=== PATIENT | female | born 1975 | race Two or more races ===

== ENCOUNTER 2024-09-26 23:05 | Observation (INO) | payer MEDICAID, SELFPAY ==
--- NOTE | 2024-09-26 23:17 | PC.NURSE ---
NOT A STROKE ALERT PER PA PATEL.
--- NOTE | 2024-09-26 23:23 | XR_ITS ---
Examination: CT brain head without contrast. 2-D sagittal coronal reconstructions Date and time of exam: September 26, 2024 at 11:58 PM INDICATIONS: Cerebrovascular effusion today CTDI: vol (mGy):47.2 DLP: (mGycm):896 Technique: Multiple CT axial sections of the brain have been obtained, 5 mm slice thickness. Contrast has not been administered. 2-D sagittal, coronal reconstructions have been obtained Low dose protocols were performed. One or more of the following dose reduction techniques were used; automated exposure control, adjustment of the mA and/or KV according to patient size, use of iterative reconstruction technique. Findings: No significant ventricular enlargement. Intra-axial or extra-axial hemorrhage density is not seen. No mass effect or midline shift Basal cisterns are not remarkable. Fourth ventricle is midline. Cranial vault intact. Impression: Negative for acute hemorrhage, mass effect or midline shift
--- NOTE | 2024-09-26 23:24 | PD.EDRME ---
Rapid Medical Screening Exam [facility] Arrival date/time: 09/26/24 23:05 48F with history of HTN and anemia presents to ED with several hours of L blurry vision and pain. Patient denies AMS, seizures, N/V, dizziness, slurred speech, and weakness. Chief Complaint: Eye Problems Time Seen by Provider: 09/26/24 23:25 Vital signs: Vital Signs Temperature 98.2 F 09/26/24 23:33 Pulse Rate 86 09/26/24 23:33 Respiratory Rate 20 09/26/24 23:33 Blood Pressure 159/79 H 09/26/24 23:33 Pulse Oximetry (%) 99 09/26/24 23:33 Oxygen Delivery Method Room Air 09/26/24 23:33
[2024-09-26 23:33] VITALS: BP 159/79; PULSE 86; RESP 20; TEMP 36.8; O2SAT 99
[2024-09-26 23:35] VITALS: BMI 29.9
--- NOTE | 2024-09-26 23:58 | PD.EDEYE ---
ED Eye Problem RME/HPI General Chief complaint: Eye Problems Stated complaint: MY EYE IS JUMPING A LOT, Time Seen by Provider: 09/26/24 23:25 Source: patient, RN notes reviewed and old records reviewed Arrival date/time: 09/26/24 23:05 Mode of arrival: ambulatory Limitations: no limitations RME / HPI RME / HPI Narrative: 09/26/24 23:05 48F with history of HTN and anemia presents to ED with several hours of L blurry vision and pain. Patient denies AMS, seizures, N/V, dizziness, slurred speech, and weakness. 48-year-old female with history of hypertension and compliant coming into the emergency department with left eye changes patient states she was looking at her phone and she felt like her eye was moving [id number] on the left side. She has hard time describing the type of vision change and or eye change however she denies headache, or trauma. The patient's not seeing a shadow come down or curtainlike feature in her eyesight. She has not had symptoms like this before. Patient states her symptoms are slightly improved since it started several hours ago. She thinks it was closer to 6 PM. No neck pain, chest pain, shortness of breath, difficulty walking, numbness, weakness, or change in her speech. No hearing loss. Denies eye pain or eye redness. No eye injury. No foreign body sensation Onset (ago): unknown Onset description: sudden Duration: intermittent Location: left eye Place: home Mechanism: none Severity: moderate Associated symptoms: none Treatments Prior to Arrival: none Related Data Home Medications ?Medication ?Instructions ?Recorded ?Confirmed lisinopril 20 mg tablet 20 mg PO DAILY 09/24/20 07/09/21 Allergies Allergy/AdvReac Type Severity Reaction Status Date / Time No Known Allergies Allergy Verified 09/26/24 23:12 Review of Systems Review of Systems Systems Reviewed: All systems reviewed, normal except as documented Past Medical History Past Medical History NEUROLOGIC: Negative Neurological Disorders or Seizures CARDIAC: Positive Cardiac Disorders and Hypertension; Negative Congestive Heart Failure RESPIRATORY: Negative Chronic Obstructive Pulmonary Disease (COPD) or Asthma GASTROINTESTINAL: Negative Gastrointestinal Disorders or Hepatitis GENITOURINARY: Negative Genitourinary Disorders or Renal Disease MUSCULOSKELETAL: Negative Musculoskeletal Disorders ENDOCRINE: Negative Endocrine Disorders, Diabetes Mellitus Type 1 or Diabetes Mellitus Type 2 HEMATOLOGIC: Negative Blood Disorders or Sickle Cell Disease OTHER HISTORY: Positive Chicken Pox; Negative Blood Transfusions, Blood Transfusion Reaction, Anesthesia Reactions, MRSA, VRSA, Vancomycin-Resistant Enterococci, Human Immunodeficiency Virus (HIV), Measles, Mumps, Rubella (Israeli Measles), Pertussis, Clostridium Difficile or Cancer Family History FAMILY HISTORY: Negative Family Cardiac Disorders Surgical History SURGICAL: Positive Section Social History SMOKING STATUS: Never smoker ED Exam Narrative Physical exam: Physical Exam GENERAL: NAD, AAOx3 HEENT: Moist mucosa. Eyes open, Lt eye dilated>> right eye, slit lamp broken, no sidel sign, cornea was not hazy, no temporal artery tenderness, flouroceein and wood lamp no foreign body with no dendrites CARDIO: Heart RRR, no obvious murmurs PULM: No noted coughing/dyspnea CTA B/L, no R/W/R GI: Abdomen soft, nondistended, no pain on palpation. BSx4 SKIN/MSK/EXT: No wounds/rashes/edema/amputations, no pain on palpation. Pedal pulses present B/L NEURO: AAOx3, no focal neuro deficits, able to move all 4 extremities General Limitations: Present no limitations Expanded Eye Exam Eyelids: bilateral: normal inspection and erythema (negative ) Pupils: Left: irregular (dilated compared to the Right ) and Bilateral: reactive Sclera/Conjunctival: bilateral: normal inspection (Lt eye dilated>>> right ), injection (negative), hemorrhage (negative), foreign body (negative), exudate (negative) and tenderness (negative) Anterior chamber: bilateral: normal inspection Posterior chamber: bilateral: deferred IOP (R) in mmH IOP (L) in mmH Course Course Course Narrative: 2358: Patient is still pending to be placed in a room. 2359: Patient is in CT then will be brought to a room. 0003: Patient is back from CT and is now placed in a room. 0035: Stroke alert called 0040: Went to CT, Teleneuro consulted 0045: Returned back from CT 0200 visual acuity test unable to be done as patient has visual deficits bilaterally, lleft pupil continues to be dilated and not constricting to light 0237 Teleneurology recommends 300mg plavix x1, and aspirin, and initiate DAPT aspirin 81mg and Plavix 75mg qday and recommends admission for further stroke work up. Quality Measures none Orders Category Date Time Status Admit to Inpatient Status Routine Admission 09/27/24 03:14 Active Patient Condition Routine Admission 09/27/24 03:13 Ordered Blood glucose [Bedside Blood Glucose] NOW Care 09/26/24 23:23 Active Political Researcher NOW Care 09/27/24 00:25 Active Continuous Pulse Oximetry NOW Care 09/27/24 00:25 Completed EKG (ED ONLY) *Do not use* NOW Care 09/27/24 00:25 Completed IV [Insert IV] STAT Care 09/26/24 23:53 Active In and Out Catheter NEEDED Care 09/27/24 00:25 Active Miscellaneous Nursing Order NOW Care 09/27/24 03:35 Active NIH Stroke Scale now Care 09/27/24 00:25 Active NPO NOW Care 09/27/24 00:25 Active Neuro Check Q4H Care 09/27/24 03:19 Active Notify provider NEEDED Care 09/27/24 03:13 Active Nurse Swallow Screen x1 Care 09/27/24 00:25 Active Visual Acuity X1 Care 09/26/24 23:53 Active Consult to Neurology / Tele-Neurology Routine Cons 09/27/24 00:25 Active Consult to Neurology / Tele-Neurology Stat Cons 09/27/24 03:41 Active Referral Physical Therapy Stat Cons 09/27/24 03:42 Active Referral Speech Therapy Stat Cons 09/27/24 03:42 Active Diet Cardiac Diet 09/27/[address] angio stroke protocol Stat Exams 09/27/24 00:[address] head/brain wo con Stat Exams 09/26/24 23:[address] stroke protocol Stat Exams 09/27/24 00:25 Ordered EKG (ED Only) Stat Exams 09/27/24 00:25 Draft CBC AM DRAW Lab 09/27/24 05:00 Ordered CBC AM DRAW Lab 09/28/24 05:00 Ordered CBC AM DRAW Lab 09/29/24 05:00 Ordered CBC Stat Lab 09/27/24 00:30 Completed Comprehensive Metabolic Panel AM DRAW Lab 09/27/24 05:00 Ordered Comprehensive Metabolic Panel AM DRAW Lab 09/28/24 05:00 Ordered Comprehensive Metabolic Panel AM DRAW Lab 09/29/24 05:00 Ordered Comprehensive Metabolic Panel Stat Lab 09/27/24 00:30 Completed Drug Screen,Urine Stat Lab 09/27/24 00:25 Ordered HCG Titer if Positive Stat Lab 09/27/24 00:30 Completed Lipid Panel AM DRAW Lab 09/27/24 05:00 Ordered Magnesium AM DRAW Lab 09/27/24 05:00 Ordered Magnesium Stat Lab 09/27/24 00:30 Completed Partial Thromboplastin Time Stat Lab 09/27/24 00:30 Completed Prothrombin Time with INR AM DRAW Lab 09/28/24 05:00 Ordered Prothrombin Time with INR Stat Lab 09/27/24 00:30 Completed Thyroid Stimulating Hormone AM DRAW Lab 09/27/24 05:00 Ordered Troponin I Stat Lab 09/27/24 00:30 Completed Urinalysis Stat Lab 09/27/24 00:25 Ordered Urine Culture Stat Lab 09/27/24 00:25 Ordered Acetaminophen Tab [Tylenol Tab] Med 09/27/24 03:19 Active 650 mg PO Q6H PRN Aspirin Med 09/27/24 02:56 Discontinued 325 mg PO X1 ONE Aspirin [Ecotrin] Med 09/27/24 15:00 Active 81 mg PO QDAY Clopidogrel [Plavix] Med 09/27/24 02:37 Discontinued 300 mg PO X1 ONE Clopidogrel [Plavix] Med 09/27/24 15:00 Active 75 mg PO QDAY Fluorescein Sodium [Bio-Roberta] Med 09/27/24 00:06 Discontinued 1 mg BOTH EYES X1 ONE Ondansetron Inj [Zofran Inj] Med 09/27/24 00:25 Active 4 mg IVP Q4HR PRN Ondansetron Inj [Zofran Inj] Med 09/27/24 03:19 Pending 4 mg IVP Q6H PRN Proparacaine Op Serene 0.5% [Alcaine Op Serene 0.5%] Med 09/26/24 23:53 Discontinued See Dose Instructions BOTH EYES X1 ONE Code Status Routine Oth 09/27/24 03:13 Ordered Oxygen Delivery NOW RT 09/27/24 00:25 Active Vital Signs Vital signs: Vital Signs Temperature 98.2 F 09/26/24 23:33 Pulse Rate 86 09/26/24 23:33 Respiratory Rate 20 09/26/24 23:33 Blood Pressure 159/79 H 09/26/24 23:33 Pulse Oximetry (%) 99 09/26/24 23:33 Oxygen Delivery Method Room Air 09/26/24 23:33 Eye MDM Narrative MDM Narrative:: 48 y/o F with PMHx of HTN and anemia who presented to the ED due to left sided vision loss and dilated pupil. last well known was around 7pm tonight 09/26/2024. States no similar symptoms in the past. Patient denies any headache, eye pain, palpitations, fever, chills. Stroke alert was called at 0033. Tele neurology consulted and CT head as well as CTA Head/Neck will be ordered. CT head came back negative for acute hemorrhage, mass effect or midline shift. Patient data External records reviewed:: [facility] previous records (Per chart review, patient was seen here on 03/16/22 for dizziness.) Clinical information provided by:: patient Social determinants that could affect healthcare access:: none Patient has the following chronic illnesses:: HTN How is presenting disease/condition affected by chronic disease/condition?: uneffected by Evaluation data The following diagnostics were reviewed and interpreted by me:: lab results Lab and/or radiology exams considered but not ordered:: none Interpretation Summary: CT negative Medications / Prescriptions Medications or Prescriptions considered but not ordered:: none Medication administrations:: Medication Administration History Acetaminophen (Acetaminophen 325 Mg Tablet) 650 mg PO Q6H PRN PRN Reason: pain 1-3 &/or fever >100.1 Stop: 10/27/24 03:18 Aspirin (Aspirin Ec 81 Mg Tabec) 81 mg PO QDAY [facility] Stop: 10/27/24 14:59 Clopidogrel Bisulfate (Clopidogrel Bisulfate 75 Mg Tablet) 75 mg PO QDAY [facility] Stop: 10/27/24 14:59 Ondansetron HCl (Ondansetron Inj 2 Mg/Ml Inj 2 Ml) 4 mg IVP Q4HR PRN PRN Reason: NAUSEA OR VOMITING Stop: 10/27/24 00:24 Ondansetron HCl (Ondansetron Inj 2 Mg/Ml Inj 2 Ml) 4 mg IVP Q6H PRN; Protocol PRN Reason: NAUSEA OR VOMITING Stop: 10/27/24 03:18 Discontinued Medications Aspirin (Aspirin 325 Mg Tablet) 325 mg PO X1 ONE Stop: 09/27/24 02:57 Last Admin: 09/27/24 03:04 Dose: 325 mg Documented By: OMID Clopidogrel Bisulfate (Clopidogrel Bisulfate 75 Mg Tablet) 300 mg PO X1 ONE Stop: 09/27/24 02:38 Last Admin: 09/27/24 03:01 Dose: 300 mg Documented By: OMID Fluorescein Sodium (Fluorescein Sod 1 Mg Strp) 1 mg BOTH EYES X1 ONE Stop: 09/27/24 00:07 Last Admin: 09/27/24 00:10 Dose: 1 mg Documented By: SF Proparacaine HCl (Proparacaine Op Serene 0.5% 15 Ml Btl) 0 drop BOTH EYES X1 ONE Stop: 09/26/24 23:54 Last Admin: 09/27/24 00:12 Dose: 2 drop Documented By: SF Comments: each eye see above Consultations Consultation(s) initiated? (list below): Yes Consultation #1 (Physician, Specialty, Details): Discussed case with Dr. Medeiros from teleneurology regarding consultation. Discussed patients ED course, exam findings, labs, and radiology results. States on his exam, he patient had left hemianopsia, left facial droop, and NIH score of 7. Suspects PAC stroke. Recommends loading the patient with aspirin and Plavix. Currently awaiting CTA head and neck results at this time. Time: 01:27 Diagnosis Eye Problem Differential Diagnosis: corneal abrasion, periorbital cellulitis and glaucoma Most likely diagnosis given after review of the tests above:: Stroke Admission Indicated Admission indicated?: indicated Explain why admission is indicated or not indicated:: needs inpatient MRI and In hourse neuro evaluation. Admission Request Was there a request for admission?: Yes Admission Attestation Admission request attestation: Discussed case with [] from Hospitalist service regarding admission. Discussed patients ED course, exam findings, labs, and radiology results. The Hospitalist [agrees,declines] to accept the patient for admission. Disposition Plan Disposition Plan: Admit Critical Care Time Critical Care Time Critical Care Time: Yes Total Critical Care Time (min.): 50 Attestation: The high probability of sudden, clinically significant deterioration in the patient?s condition required the highest level of my preparedness to intervene urgently. The services I provided to this patient were to treat and/or prevent clinically significant deterioration. Services included the following: chart data review, reviewing nursing notes and/or old charts, documentation time, direct sales consultant collaboration regarding findings and treatment options, medication orders and management, direct patient care, vital sign assessments and ordering, interpreting and reviewing diagnostic studies and lab tests. Aggregate critical care time includes only time during which I was engaged in work directly related to the patient?s care, as described above, whether at bedside or elsewhere in the Emergency Department. It did not include time spent performing other reported procedures or the services of residents, students, nurses or physician assistants. Discharge Plan Plan Patient Disposition: Admit Acute Care w/in Hospital Patient condition on transfer: Stable Problem List Clinical Impression: Stroke, Left homonymous hemianopsia
[2024-09-27] VITALS (18 sets, daily range): BP systolic 112–162; BP diastolic 65–101; PULSE 20–106; RESP 16–98; TEMP 36.4–37.1; O2SAT 95–100; BMI 29.9
--- NOTE | 2024-09-27 | XR_ITS ---
Examinations: MRI Brain without intravenous contrast. MRI brain with intravenous contrast MRA brain with intravenous contrast. MRA brain without intravenous contrast MRA neck with intravenous contrast Date and time of exam: September 27, 2024 1527 hours INDICATIONS: Blurred vision left eye and left facial pain today Technique: Multiple axial and sagittal images of the brain have been obtained Siemens high-resolution 1.5 Lavern short bore scanner is utilized. Sagittal sections, T1-weighted, TR 500, TE 14 Axial sections proton density and T2-weighted, TR 3,000, TE 34, TR 3,000, TE 91 Inversion recovery axial images, TR 9,260, TE 111, TI 2,500 Diffusion weighted images, axial sections, TR 4,800, TE 128, B value 1,000 Axial sections, ADC map, TR 4,800, TE 128. Contrast images have been obtained post intravenous 18 cc Gadolinium. T1-weighted axial and coronal images post contrast have been obtained. Angiographic images of neck and brain are obtained pre and post contrast. 3-D post processing performed, including brain, extracranial neck arterial maximum intensity projections Findings: Sellaturcica is not enlarged. The optic chiasm and infundibular stalk are not remarkable. Prepontine and interpeduncular cisterns are not enlarged. No localized enlargement of the medulla or merly. Fourth ventricle and cerebellar tonsils normal in position. Subacute hemorrhage is not seen. Fourth ventricle is midline. Mass in the cerebellopontine angle region is not evident. 7th and 8th nerve complexes exhibits symmetry. Globes are symmetrical with no retro-orbital mass. Increased white matter signal evident, scattered punctate foci increased signal in the white matter and in the cortex left posterior parietal occipital lobe Diffusion-weighted images demonstrateno focus of restricted diffusion. Mass-effect upon the ventricular system is not identified. Abnormal contrast enhancement is not seen. MRA brain carotid images no carotid stenoses, no large vessel occlusions Impression: Negative for acute hemorrhage mass effect or midline shift No acute infarct Punctate foci increased signal in the white matter, consider demyelinating disease No abnormal enhancing cerebellar or cerebral lesions No carotid stenoses, no cerebral large vessel occlusions
[2024-09-27] MEDS: FLUORESCEIN SOD 1 MG STRP BOTH EYES (00:10)
[2024-09-27] MEDS: PROPARACAINE OP SOL 0.5% 15 ML BTL BOTH EYES (00:12)
--- NOTE | 2024-09-27 00:25 | XR_ITS ---
Examination: CTA carotids with intravenous contrast CTA brain, head with intravenous contrast. 2-D sagittal, coronal reconstructions. 3-D reconstructions. Exam date and time: September 27, 2024 0042 hours INDICATIONS: Stroke alert, onset focal neurologic deficit today CTDI: vol (mGy) 11.7 DLP: (mGycm) 417 Technique: Multiple CTA axial brain, head carotid images post intravenous contrast injection 75 cc, [id number]. 2-D sagittal, coronal reconstructions. 3-D reconstructions, 3-D post processing including vascular maximum intensity projection images. Low dose protocols were performed. One or more of the following dose reduction techniques were used; automated exposure control, adjustment of the mA and/or KV according to patient size, use of iterative reconstruction technique. Findings: No significant common carotid carotid bifurcation or internal carotid artery stenoses Dominant right vertebral artery with no critical stenoses No cerebral large vessel arterial occlusion or thrombus IMPRESSION: No significant neck arterial stenoses. No cerebrovascular large vessel occlusion thrombus.
--- NOTE | 2024-09-27 00:25 | EKG_ITS ---
[facility] Test Date: 2024-09-27 Pat Name: JEN QUAN Department: Room: - Gender: Female Children Counselor: : 1975 Requested By: Juan A Ambriz Order Number: [id number] Reading MD: Juan A Ambriz Measurements Intervals [place] Rate: 92 P: 23 CO: 147 QRS: -17 QRSD: 92 T: 17 QT: 380 QTc: 470 Interpretive Statements SINUS RHYTHM MODERATE VOLTAGE CRITERIA FOR LVH, CONSIDER NORMAL VARIANT [MEETS CRITERIA IN ONE OF: R(aVL), S(V1), R(V5), R(V5/V6)+S(V1)] POSSIBLE ANTERIOR MYOCARDIAL INFARCTION , PROBABLY OLD [30 ms Q WAVE IN V3/V4, OR R < 0.2 mV IN V4] Compared to ECG 03/16/2022 16:25:21 No significant changes /store/S0/[id number].pdf
[2024-09-27 00:50] LABS: Basophils # (Auto) 0.1 Thou/mm3 (0.0-0.2); Basophils % (Auto) 1 % (0-2.5); Eosinophils # (Auto) 0.1 Thou/mm3 (0.0-0.5); Eosinophils % (Auto) 2 % (0-10); Hematocrit 25.5 % (36.0-46.0); Immature Granulocytes Auto 0.02 Thou/mm3 (0.00-0.00); Lymphocytes # (Auto) 3.9 Thou/mm3 (1.0-4.8); Lymphocytes % (Auto) 56 % (10-50); Mean Corpuscular HGB Conc 27.5 g/dl (31.0-37.0); Mean Corpuscular Hemoglobin 16.1 pg (25.0-35.0); Mean Corpuscular Volume 59 fL (80-100); Monocytes # (Auto) 0.3 Thou/mm3 (0.0-0.8); Monocytes % (Auto) 4 % (0-12); Neutrophils # (Auto) 2.6 Thou/mm3 (1.8-7.7); Neutrophils % (Auto) 37 % (37-80); Nucleated Red Blood Cell # 0.00 Thou/mm3 (0.00-0.00); Nucleated Red Blood Cell % 0 /100 WBC (0); Platelet Count 480 Thou/mm3 (140-440); RDW Standard Deviation 41.0 fL (36.4-46.3); Red Blood Count 4.34 Miln/mm3 (4.00-5.20); White Blood Count 6.9 Thou/mm3 (3.6-11.0)
--- NOTE | 2024-09-27 00:52 | PRELIM_ITS ---
CT scan of the head without intravenous contrast (axial sections with sagittal and coronal reformats) September 26, 2024 2357 hours Clinical history: L eye pain/blurry vision Comparison: No prior study is available for comparison. Findings: There is no evidence of intracranial hemorrhage, mass effect or midline shift. There are periventricular white matter hypodensities, compatible with chronic small vessel ischemia. There is mild volume loss. The calvarium is unremarkable. The mastoid air cells and the visualized paranasal sinuses are clear. Impression: No evidence of intracranial hemorrhage, mass effect or midline shift. Periventricular chronic small vessel ischemia and volume loss. Report Electronically Signed By: Max Schuler 09/27/2024 12:51:32 AM [EST]
[2024-09-27 00:59] LABS: Hemoglobin 7.0 g/dL (12.0-16.0)
[2024-09-27 01:08] LABS: Alanine Aminotransferase 10 U/L (10-49); Albumin, Serum 4.8 gm/dL (3.5-5.0); Albumin/Globulin Ratio 1.4 (1.2-2.2); Alkaline Phosphatase 138 U/L (46-116); Anion Gap 12 (7-16); Aspartate Amino Transferase 18 U/L (0-34); BUN/Creatinine Ratio 8 Ratio (12-20); Bilirubin,Total 0.3 mg/dL (0.3-1.2); Blood Urea Nitrogen < 5 mg/dL (9-23); Calcium 9.3 mg/dL (8.3-10.6); Calcium (Corrected) 9.3 mg/dL (8.5-10.1); Carbon Dioxide 22.5 mMol/L (20.0-31.0); Chloride 100 mMol/L (98-107); Creatinine (Component) 0.6 mg/dL (0.6-1.3); Estimated Creatinine Clearance 90.5 mL/min (>60); Globulin 3.4 gm/dL (2.3-3.5); Glucose 109 mg/dL (74-106); Magnesium 1.9 mg/dL (1.6-2.6); Osmolality,Calculated 266 (275-295); Potassium 3.3 mMol/L (3.4-5.1); Sodium 134 mMol/L (136-145); Total Protein 8.2 gm/dL (5.7-8.2); Troponin I 0.033 ng/mL (0.0-0.045); eGFR > 60 See Note
[2024-09-27 01:09] LABS: INR 1.0 (0.9-1.3); Partial Thromboplastin Time 25.6 Seconds (22.0-36.0); Prothrombin Time 10.7 Seconds (9.0-12.2)
[2024-09-27 01:16] LABS: HCG Titer if Positive Negative
--- NOTE | 2024-09-27 01:38 | ESCONSULT_ITS ---
Tele Neuro Consultation Consultation Date 09/27/24 Most Recent Vital Signs Last Vital Signs Temp 98.1 F 09/27/24 01:22 Pulse 96 09/27/24 01:22 Resp 17 09/27/24 01:22 BP 131/69 H 09/27/24 01:22 Pulse Ox 96 09/27/24 01:22 O2 Del Method Room Air 09/27/24 01:22 Laboratory-Coagulation Panel PT 10.7 Seconds (9.0-12.2) 09/27/24 00:30 INR 1.0 (0.9-1.3) 09/27/24 00:30 APTT 25.6 Seconds (22.0-36.0) 09/27/24 00:30 Consultation Narrative [facility] Tele[facility]urology Consult Services Patient Name:???JEN QUAN Date of :???1975 Identification Number:??? Date of Service:???09/27/2024 00:52:33 Diagnosis:?I63.89 - Cerebrovascular accident (CVA) due to other mechanism (HCCC) Impression: ?The patient has a h/o HTN and anemia, presents with L sided vision loss and slurred speech that she said had resolved. However on exam she had complete L homonymous hemianopsia, anomia, and L facial droop which she was unaware of. Although she answers fluently, she was unable to name bicycle, saying only wheels and unable to read. Acute stroke is suspected. Thus LKWT cannot be clearly established but most likely greater than 4.5 hours; and she is not a candidate for IV thrombolytics. CTH is without acute findings. Stat CTA H/N are pending to rule out LVO. Otherwise will admit for stroke workup. Our recommendations are outlined below. Recommendations: ? Stroke/Telemetry Floor ? Neuro Checks (Q4) ? Bedside Swallow Eval ? DVT Prophylaxis ? IV Fluids, Normal Saline ? Head of Bed 30 Degrees ? Euglycemia and Avoid Hyperthermia (PRN Acetaminophen) ? Bolus with Clopidogrel 300 mg bolus x1 and initiate dual antiplatelet therapy with Aspirin 81 mg daily and Clopidogrel 75 mg daily ? Antihypertensives PRN if Blood pressure is greater than 220/120 or there is a concern for End organ damage/contraindications for permissive HTN. If blood pressure is greater than 220/120 give labetalol PO or IV or Vasotec IV with a goal of 15% reduction in BP during the first 24 hours. ?Please f/u CTA to rule out LVO. I will followup CTA results. However, if you receive a report that shows large vessel occlusion please call [facility] for a Dr to call so I can help facilitate [facility] consultation. ?If no LVO, then admit for further stroke workup. Sign Out: ? Discussed with Emergency Department Provider Advanced Imaging: Advanced imaging has been ordered. Results pending. Metrics: Last Known Well: 09/26/2024 16:00:00 Dispatch Time: 09/27/2024 00:52:33 Arrival Time: 09/26/2024 23:05:00 Initial Response Time: 09/27/2024 00:59:23Symptoms: L eye vision change and slurred speech. Initial patient interaction: 09/27/2024 01:01:50 NIHSS Assessment Completed: 09/27/2024 01:06:00Patient is not a candidate for Thrombolytic. Thrombolytic Medical Decision: 09/27/2024 01:08:59Patient was not deemed candidate for Thrombolytic because of following reasons: LKW outside 4.5 hr window. . Care-team unable to determine eligibility. . CT Head: I personally reviewed all the CT images that were available to me and it showed: No Acute Hemorrhage or Acute Core Infarct Primary Provider Notified of Diagnostic Impression and Management Plan on: 09/27/2024 01:32:48 History of Present Illness:Patient is a 48 year old Female. Patient was brought by private transportation with symptoms of L eye vision change and slurred speech. She said her L eye, vision was dimming, and the lights on her phone became really bright. Her vision now is back to normal. She felt like her tongue was thick with some difficulty getting words out. It started at 4pm, it resolved at 7pm, and then it came back again for a half hour and then resolved. Currently she feels normal. However on exam she still had L sided vision loss and trouble speaking and she was not aware of it. Thus LKWT cannot be clearly established. She denies any headache or nausea. She endorses drinking alcohol the past 3 days. Past Medical History: ?Hypertension Other PMH:? diziness ?anemia ? Medications: No Anticoagulant use? No Antiplatelet use Reviewed EMR for current medications Allergies:? Reviewed Social History: Smoking: No Alcohol Use: Yes Family History: There is no family history of premature cerebrovascular disease pertinent to this consultation ROS : 14 Points Review of Systems was performed and was negative except mentioned in HPI. Past Surgical History: There Is No Surgical History Contributory To Today?s Visit Examination: BP(131/69),?Pulse(103), 1A: Level of Consciousness - Alert; keenly responsive?+ 0 1B: Ask Month and Age - 1 Question Right?+ 1 1C: Blink Eyes & Squeeze Hands - Performs Both Tasks?+ 0 2: Test Horizontal Extraocular Movements - Normal?+ 0 3: Test Visual Ghosh - Complete Hemianopia?+ 2 4: Test Facial Palsy (Use Grimace if Obtunded) - Minor paralysis (flat nasolabial fold, smile asymmetry)?+ 1 5A: Test Left Arm Motor Drift - No Drift for 10 Seconds?+ 0 5B: Test Right Arm Motor Drift - No Drift for 10 Seconds?+ 0 6A: Test Left Leg Motor Drift - No Drift for 5 Seconds?+ 0 6B: Test Right Leg Motor Drift - No Drift for 5 Seconds?+ 0 7: Test Limb Ataxia (FNF/Heel-Phillips) - No Ataxia?+ 0 8: Test Sensation - Normal; No sensory loss?+ 0 9: Test Language/Aphasia - Severe Aphasia: Fragmentary Expression, Inference Needed, Cannot Identify Materials?+ 2 10: Test Dysarthria - Normal?+ 0 11: Test Extinction/Inattention - Extinction to bilateral simultaneous stimulation?+ 1 NIHSS Score:?7 NIHSS Free Text :?extinction to double touch (only feels the left) ?she is unable to recognize bicycle, only wheels , similarly cannot recognize bucket or cloud. She is unable to read currently either. However she answers questions with good verbal fluency. Pre-Morbid Modified Fidel Scale:0 Points = No symptoms at all Spoke with :?Dr Bolton This consult was conducted in real time using interactive audio and video technology. Patient was informed of the technology being used for this visit and agreed to proceed. Patient located in hospital and provider located at home/office setting. Patient is being evaluated for possible acute neurologic impairment and high probability of imminent or life-threatening deterioration. I spent total of 35 minutes providing care to this patient, including time for face to face visit via telemedicine, review of medical records, imaging studies and discussion of findings with providers, the patient and/or family. Dr Ortiz Medeiros [facility] For Inpatient follow-up with [facility] physician please call [facility] at . As we are not an outpatient service for any post hospital discharge needs please contact the hospital for assistance. If you have any questions for the [facility] physicians or need to reconsult for clinical or diagnostic changes please contact us via [facility] at .
--- NOTE | 2024-09-27 02:29 | PRELIM_ITS ---
CT angiogram of the head and neck with intravenous contrast (axial sections with sagittal and coronal reformats) September 27, 2024 0042 hours Clinical History: Focal neuro deficit, stroke suspected Findings: Head: The internal carotid, middle and anterior cerebral arteries are patent bilaterally. The intracranial vertebral arteries are patent. The vertebrobasilar junction, basilar and posterior cerebral arteries are patent. No evidence of large vessel occlusion, critical stenosis or aneurysm. Neck: The aortic arch to the extent visualized as well as the origins of the right brachiocephalic, left common carotid, and left subclavian arteries are patent. The common carotid arteries, carotid bulbs, and internal and external carotid arteries are patent. The origins of the vertebral arteries are unremarkable. The right vertebral artery is dominant. No evidence of vascular occlusion, critical stenosis, dissection or aneurysm. The soft tissues of the neck are unremarkable. The osseous structures are unremarkable. Impression: Head: No evidence of large vessel occlusion, critical stenosis or aneurysm. Neck: No evidence of vascular occlusion, critical stenosis, dissection or aneurysm. Report Electronically Signed By: Max Schuler 09/27/2024 2:29:29 AM [EST]
[2024-09-27] MEDS: CLOPIDOGREL BISULFATE 75 MG TABLET 300 MG PO (03:01)
--- NOTE | 2024-09-27 03:45 | ESHP_ITS ---
<Statement entered by Kal De Leon MD - 09/27/24 04:30> I have personally seen and examined the patient. I agree with the resident's assessment and plan as documented below. Kal De Leon, DO PGY-2 Internal Medicine - GME Documentation for date of: 09/27/24 HPI History of Present Illness Chief complaint: Left blurry vision and facial pain History of present illness: Judy Fermin is a 48F pmhx significant for HTN and anemia who presents with left blurry vision and left sided facial pain. History was collected via historic interpreter. Patient reports she experienced left- sided facial pain and blurry vision late afternoon. Patient says she has never had the symptoms before and that they have resolved a few hours ago without any intervention. Patient denies any trauma or any history of stroke or seizures. Patient denies chest pain, SOB, recent illnesses or fever. Neurology was consulted and teleneuro reports on exam she had complete left homonymous hemianopsia, anomia, and left facial droop. But on admitting team examination, homonymous hemianopsia and facial left facial droop were resolved. CT brain negative for hemorrhage and CTA head and neck negative for LVO. EKG in sinus rhythm w rate of 92. In ED, BP 159/79, hemoglobin 7.0, sodium 134 potassium 3.3, alk phos 138. In ED, given loading doses of Plavix 300 mg and aspirin 325 mg. PMHx: Hypertension, anemia Surgical Hx: x3 FHx: Noncontributory Social Hx: Denies tobacco alcohol recreational drug use Allergies: NKA Medications: None Patient was admitted for further workup. Review of Systems Review of Systems Systems Reviewed: All systems reviewed, normal except as documented Exam Vital Signs Temp Pulse Resp BP Pulse Ox O2 Del Method 98.1 F 88 18 139/79 H 100 Room Air 09/27/24 03:09 09/27/24 03:09 09/27/24 03:09 09/27/24 03:09 09/27/24 03:09 09/27/24 03:09 Narrative Exam General: AOx3, no acute distress HEENT: NC/AT, mucous membranes moist, bilateral sclera anicteric Cardiovascular: regular rate and rhythm, S1/S2 present, no murmurs appreciated Pulmonary: clear to auscultation bilaterally, no rales/rhonchi/wheezes Abdominal: soft, non-tender, non-distended, no rebound/guarding, bowel sounds present Extremities: no peripheral edema Skin: warm and dry, intact, no rashes Neuro - CN II-XII grossly intact, no focal deficits - Peripheral vision intact bilaterally - B/l loss claim clerk strength 5/5, BUE strength 5/5 - alert, following commands Results: Labs 09/27/24 05:00 09/27/24 00:30 Labs: Short CBC 09/27/24 Range/Units 00:30 WBC 6.9 (3.6-11.0) Thou/mm3 Hgb 7.0 L (12.0-16.0) g/dL Hct 25.5 L (36.0-46.0) % Plt Count 480 H (140-440) Thou/mm3 BMP 09/27/24 00:30 Sodium 134 L Potassium 3.3 L Chloride 100 Carbon Dioxide 22.5 BUN < 5 L Creatinine 0.6 Glucose 109 H Calcium 9.3 Cardiac Enzymes 09/27/24 Range/Units 00:30 Troponin I 0.033 (0.0-0.045) ng/mL Liver Function 09/27/24 Range/Units 00:30 Total Bilirubin 0.3 (0.3-1.2) mg/dL AST 18 (0-34) U/L ALT 10 (10-49) U/L Alkaline Phosphatase 138 H (46-116) U/L Albumin 4.8 (3.5-5.0) gm/dL Quality Measures Quality Measures none Medications Home Medications and Allergies Home Medications ?Medication ?Instructions ?Recorded ?Confirmed ?Type lisinopril 20 mg tablet 20 mg PO DAILY 09/24/2006/26 History Allergies Allergy/AdvReac Type Severity Reaction Status Date / Time No Known Allergies Allergy Verified 09/26/24 23:12 Visit Medications Acetaminophen (Acetaminophen 325 Mg Tablet) 650 mg PO Q6H PRN PRN Reason: pain 1-3 &/or fever >100.1 Stop: 10/27/24 03:18 Aspirin (Aspirin Ec 81 Mg Tabec) 81 mg PO QDAY [facility] Stop: 10/27/24 14:59 Clopidogrel Bisulfate (Clopidogrel Bisulfate 75 Mg Tablet) 75 mg PO QDAY [facility] Stop: 10/27/24 14:59 Ondansetron HCl (Ondansetron Inj 2 Mg/Ml Inj 2 Ml) 4 mg IVP Q4HR PRN PRN Reason: NAUSEA OR VOMITING Stop: 10/27/24 00:24 Ondansetron HCl (Ondansetron Inj 2 Mg/Ml Inj 2 Ml) 4 mg IVP Q6H PRN; Protocol PRN Reason: NAUSEA OR VOMITING Stop: 10/27/24 03:18 Discontinued Medications Aspirin (Aspirin 325 Mg Tablet) 325 mg PO X1 ONE Stop: 09/27/24 02:57 Last Admin: 09/27/24 03:04 Dose: 325 mg Clopidogrel Bisulfate (Clopidogrel Bisulfate 75 Mg Tablet) 300 mg PO X1 ONE Stop: 09/27/24 02:38 Last Admin: 09/27/24 03:01 Dose: 300 mg Fluorescein Sodium (Fluorescein Sod 1 Mg Strp) 1 mg BOTH EYES X1 ONE Stop: 09/27/24 00:07 Last Admin: 09/27/24 00:10 Dose: 1 mg Proparacaine HCl (Proparacaine Op Serene 0.5% 15 Ml Btl) 0 drop BOTH EYES X1 ONE Stop: 09/26/24 23:54 Last Admin: 09/27/24 00:12 Dose: 2 drop Assessment & Plan Plan Judy Fermin is a 48F pmhx significant for HTN and anemia who is admitted for stroke workup. # Neurologic deficits # HTN Patient experienced left-sided facial pain with left-sided blurry vision, concerning for TIA versus stroke. Physical examination by teleneuro showed complete L homonymous hemianopsia, anomia, and L facial droop which she was unaware of, but on admitting team examination the aforementioned resolved. Patient has a history of hypertension, however blood pressure in ED was normal on no medication (was previously on Lisinopril). CT brain negative for hemorrhage and CTA head and neck negative for LVO. EKG in sinus rhythm w rate of 92. - Neuro checks q4h - PT and swallow eval ordered - F/u CBC, CMP, HbA1c, lipid panel, PT/INR, TSH, UDS, UA - F/u MRI - s/p Plavix 300 mg and ASA 325 mg in ED - Initiate dual antiplatelet therapy with Plavix 75 mg daily and ASA 81 mg daily - Antihypertensive prn if BP >220/120 or if concern for end organ damage - Neurology consulted, recs appreciated # Microcytic anemia Hgb 7 on admission. Decreased to 6.0 with no signs of active bleeding. Has hx of menorrhagia with blood transfusions in the past. - F/u iron panel, ferritin, FOBT - Ordered 1 unit pRBC - Transfuse if Hgb <7 #Hypomagnesimia Mg 1.9. - Ordered Mg 4 g Hospital management: Disposition: admit for stroke workup Diet: cardiac DVT prophylaxis: Plavix CODE STATUS: Full code Plan of care discussed with attending Dr. Ortega, and PGY-2 Dr. De Leon . Zita Bowens, PGY-1 Attending Provider Attestation/Addendum 48-year-old female with hypertension and anemia presents with left sided visual change. On exam the patient initially had left homonymous hemianopsia, anomia and facial droop that is completely resolved. The patient denies headache. He has no stiff neck. 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 Patient has no weakness of the arms and legs on both sides. She will be admitted for further evaluation and stroke workup. Patient was seen by teleneurology service. I discussed with and supervised the resident physician who took care of this patient. I agree with the assessment and plan as above.
[2024-09-27 05:03] LABS: Basophils # (Auto) 0.1 Thou/mm3 (0.0-0.2); Basophils % (Auto) 1 % (0-2.5); Eosinophils # (Auto) 0.1 Thou/mm3 (0.0-0.5); Eosinophils % (Auto) 1 % (0-10); Hematocrit 24.0 % (36.0-46.0); Immature Granulocytes Auto 0.04 Thou/mm3 (0.00-0.00); Lymphocytes # (Auto) 2.6 Thou/mm3 (1.0-4.8); Lymphocytes % (Auto) 58 % (10-50); Mean Corpuscular HGB Conc 26.3 g/dl (31.0-37.0); Mean Corpuscular Hemoglobin 15.6 pg (25.0-35.0); Mean Corpuscular Volume 60 fL (80-100); Monocytes # (Auto) 0.2 Thou/mm3 (0.0-0.8); Monocytes % (Auto) 5 % (0-12); Neutrophils # (Auto) 1.5 Thou/mm3 (1.8-7.7); Neutrophils % (Auto) 34 % (37-80); Nucleated Red Blood Cell # 0.03 Thou/mm3 (0.00-0.00); Nucleated Red Blood Cell % 1 /100 WBC (0); Platelet Count 458 Thou/mm3 (140-440); RDW Standard Deviation 41.6 fL (36.4-46.3); Red Blood Count 4.03 Miln/mm3 (4.00-5.20); White Blood Count 4.4 Thou/mm3 (3.6-11.0)
[2024-09-27 05:46] LABS: Hemoglobin 6.3 g/dL (12.0-16.0)
[2024-09-27 06:07] LABS: Alanine Aminotransferase 10 U/L (10-49); Albumin, Serum 4.0 gm/dL (3.5-5.0); Albumin/Globulin Ratio 1.3 (1.2-2.2); Alkaline Phosphatase 119 U/L (46-116); Anion Gap 9 (7-16); Aspartate Amino Transferase 19 U/L (0-34); BUN/Creatinine Ratio 7 Ratio (12-20); Bilirubin,Total 0.2 mg/dL (0.3-1.2); Blood Urea Nitrogen < 5 mg/dL (9-23); Calcium 8.7 mg/dL (8.3-10.6); Calcium (Corrected) 8.7 mg/dL (8.5-10.1); Carbon Dioxide 21.9 mMol/L (20.0-31.0); Cardiac Risk Estimate 3.1 RATIO (3.7-5.6); Chloride 111 mMol/L (98-107); Cholesterol 136 mg/dL (132-200); Creatinine (Component) 0.7 mg/dL (0.6-1.3); Estimated Creatinine Clearance 77.6 mL/min (>60); Globulin 3.1 gm/dL (2.3-3.5); Glucose 97 mg/dL (74-106); HDL Cholesterol 44 mg/dL (40-60); LDL Cholesterol,Calculated 49 mg/dL (0-130); Magnesium 2.0 mg/dL (1.6-2.6); Osmolality,Calculated 280 (275-295); Potassium 4.0 mMol/L (3.4-5.1); Sodium 142 mMol/L (136-145); Thyroid Stimulating Hormone 1.60 uIU/mL (0.55-4.78); Total Protein 7.1 gm/dL (5.7-8.2); Triglycerides 216 mg/dL (30-150); eGFR > 60 See Note
[2024-09-27 06:21] LABS: Path Review Blood Smear Sent to Pathologist
[2024-09-27 07:04] LABS: Ferritin 3 ng/mL (7.3-270.7); Iron < 5 mcg/dL (50-170); Percent Iron Saturation 1 % (20-55); Total Iron Binding Capacity 436 mcg/dL (250-425); Unsaturated Iron Binding 431 (225-295)
[2024-09-27 09:36] LABS: Misc Send Out* See Sep Rpt
[2024-09-27] MEDS: Magnesium Sulfate 4 GM Ivpb 4 GM/50 ML BAG IV (09:50)
--- NOTE | 2024-09-27 10:01 | ESPR_ITS ---
<Statement entered by Tito Vuong MD - 09/27/24 18:02> I have reviewed the note and agree with the resident's assessment & plan with exceptions as below. I have personally reviewed labs, imaging, home meds/prior records, examined the patient, formulated and discussed management plan with the IM team. Judy is a overnight admit for r/o stroke. Patient's focal deficits including weakness, lethargy had resolved upon examination. Pending neurologic recommendations. Patient received 300 mg of Plavix and loading aspirin, however she was found to have a hemoglobin of 6.3 in which she required a blood transfusion. Will reach out to neurology in terms of resuming maintenance Plavix and aspirin. Will follow with MRI. Patient also had folate and B12 levels ordered in addition to SCDs. We have high suspicion for TIA due to her resolving of symptoms. Patient's hemoglobin A1c was too high to be calculated and was sent out. Patient could have risk factor for TIA/CVA due to uncontrolled diabetes. Will further workup and manage. Patient will require outpatient oral iron every other day upon discharge. Will hold off on IV iron as iron studies revealed severe iron deficiency anemia with low ferritin and iron levels. We will not do IV iron as patient is getting blood transfusion and risk of iron overload. Tito Vuong, PGY-2 Internal Medicine Documentation for date of: 09/27/24 Subjective Subjective Interval history: Patient seen today. Patient had just returned from MRI. Sx of left blurry vision and left facial pain that was present overnight has resolved. Patient is not complaining of any new symptoms and feels well. Patient reports no chest pain, sob, abdominal pain, nausea or vomiting. Exam Vital Signs Temp Pulse Resp BP Pulse Ox O2 Del Method 98.5 F 20 L 16 151/84 H 100 Room Air 09/27/24 08:21 09/27/24 08:21 09/27/24 07:50 09/27/24 08:21 09/27/24 08:21 09/27/24 08:21 Narrative Exam General: AOx3, no acute distress, hungarian speaking, obese HEENT: NC/AT, mucous membranes moist, bilateral sclera anicteric Cardiovascular: regular rate and rhythm, S1/S2 present, no murmurs/rubs/gallops Pulmonary: clear to auscultation bilaterally, no rales/rhonchi/wheezes Abdominal: soft, non-tender, non-distended, no rebound/guarding, bowel sounds present Extremities: no peripheral edema Skin: warm and dry, intact, no rashes Neuro: following commands, no focal deficits, bilat maintenance department technician strength 5/5 on upper, bilat lower ext strength 5/5, peripheral vision intact Objective Labs 09/27/24 14:00 09/27/24 05:00 Labs: Laboratory Results - last 24 hr 09/27/24 09/27/24 09/27/24 00:01 00:30 05:00 WBC 6.9 4.4 RBC 4.34 4.03 Hgb 7.0 L 6.3 L* Hct 25.5 L 24.0 L MCV 59 L 60 L MCH 16.1 L 15.6 L MCHC 27.5 L 26.3 L RDW Std Deviation 41.0 41.6 Plt Count 480 H 458 H Neut % (Auto) 37 34 L Lymph % (Auto) 56 H 58 H [place] % (Auto) 4 5 Eos % (Auto) 2 1 Baso % (Auto) 1 1 Neut # (Auto) 2.6 1.5 L Lymph # (Auto) 3.9 2.6 [place] # (Auto) 0.3 0.2 Eos # (Auto) 0.1 0.1 Baso # (Auto) 0.1 0.1 Immature Gran # (Auto) 0.02 H 0.04 H Absolute Nucleated RBC 0.00 0.03 H Immature Gran % 0 1 H Nucleated RBC % 0 1 H Smear Path Review Sent to Pathologist PT 10.7 INR 1.0 APTT 25.6 Sodium 134 L 142 Potassium 3.3 L 4.0 D Chloride 100 111 H Carbon Dioxide 22.5 21.9 Anion Gap 12 9 BUN < 5 L < 5 L Creatinine 0.6 0.7 Estim Creat Clear Calc 90.5 77.6 eGFR > 60 > 60 BUN/Creatinine Ratio 8 L 7 L Glucose [address] Glu mg/dL Cancelled Hemoglobin A1c Cancelled Calculated Osmolality 266 L 280 Calcium 9.3 8.7 Corrected Calcium 9.3 8.7 Magnesium 1.9 2.0 Iron < 5 L TIBC 436 H Iron Saturation 1 L Unsat Iron Binding 431 H Ferritin 3 L Total Bilirubin 0.3 0.2 L AST 18 19 ALT 10 10 Alkaline Phosphatase 138 H 119 H Troponin I 0.033 Total Protein 8.2 7.1 Albumin 4.8 4.0 D Globulin 3.4 3.1 Albumin/Globulin Ratio 1.4 1.3 Triglycerides 216 H Cholesterol 136 LDL Cholesterol, Calc 49 HDL Cholesterol 44 Cholesterol/HDL Ratio 3.1 L TSH 1.60 HCG (Qual) Negative Blood Type O Positive Antibody Screen NEGATIVE Crossmatch See Detail Blood Bank Wristband ID Yes Quality Measures Quality Measures none Assessment & Plan Assessment Current Active Medications: Generic Name Dose Route Start Last Admin Trade Name Freq PRN Reason Stop Dose Admin Acetaminophen 650 mg 09/27/24 03:19 Acetaminophen 325 Mg Tablet PO 10/27/24 03:18 Q6H PRN pain 1-3 &/or fever >100.1 Atorvastatin Calcium 40 mg 09/27/24 21:00 Atorvastatin Calcium 20 Mg Tablet PO 10/27/24 20:59 HS HORACE Magnesium Sulfate 4 gm in 50 mls @ 12.5 mls/hr 09/27/24 06:04 09/27/24 09:50 Magnesium Sulfate Ivpb IV 09/27/24 10:03 12.5 mls/hr X1 ONE Administration Ondansetron HCl 4 mg 09/27/24 00:25 Ondansetron Inj 2 Mg/Ml Inj 2 Ml IVP 10/27/24 00:24 Q4HR PRN NAUSEA OR VOMITING Plan Assessment Judy is a 48F with PMHx of HTN and anemia who is admitted for stroke rule- out. #Stroke rule-out #Neurologic deficits #DDX TIA vs Stroke Patient experienced left-sided facial pain with left-sided blurry vision, concerning for TIA versus stroke. Physical examination by teleneuro showed complete L homonymous hemianopsia, anomia, and L facial droop. Sx have resolved at present time. CT brain negative for hemorrhage and CTA head and neck negative for LVO. EKG in sinus rhythm w rate of 92. History of hypertension and on lisinopril (not started due to ED BP within normal range). Trig 216, Chol 136. TSH normal. Plan: - Neurology consulted, recs appreciated - MR stroke protocol - PT and swallow eval pending - F/u on HbA1c - F/u MRI head - Received loading doses of Plavix 300 mg and ASA 325 mg in ED - We will look to initiate dual antiplatelet therapy with Plavix 75 mg daily and ASA 81 mg daily at neuro's discretion. - Neurochecks q4h #Microcytic anemia #Secondary to Fe deficiency Hx of menorrhagia - LMP 3mons ago - approaching menopause Hgb 7 on admission. Decreased to 6.3 with no signs of active bleeding. Fe <5, TIBC 436, %Fe sat 1, ferritin 3. Transfuse if Hgb <7 Plan - Received 1 unit pRBC - hgb appropriate response 6.3 -> 7.9 - Start oral Fe at discharge - We will not do IV iron as patient is getting blood transfusion and risk of iron overload. #HTN BP 156/83 today Plan Permissive HTN (SBP <185) No med at this time #Mild hypertriglyceridemia Triglycerides elevated (216) Plan - Recommend low fat diet #Hypomagnesimia - RESOLVED Mg 2 - received Mg 4 g Hospital management: Diet: cardiac DVT prophylaxis: Plavix - revise tomorrow AM CODE STATUS: Full code Case discussed with my attending Dr. Golden, and senior resident, Dr. Carolann Mesa MD PGY-1 Attending Provider Attestation/Addendum I attest that I was physically present for the evaluation, physical examination, lab and imaging review of the patient with the residents. I discussed the case with the residents and agree with the findings and plans of care as documented above. Xiomara Golden MD
--- NOTE | 2024-09-27 10:07 | PC.CC ---
Patient is a 48 year-old female who presents to the hospital for stroke rule out. Anamaria VLAERA made [id number] contact with patient. ASW introduced self, role, and reason for visit. Patient appeared alert and oriented to self, location, and situation. Patient was pleasant and engaged in initial assessment. Patient confirmed her information on demographics and reports to living with her , Patricio Fermin . Patient reports that in the event she is unable to make her own medical decisions her would be her medical decision maker. Patient reports that she is able to ambulate independently and complete her own ADLs. Patient does not require the use of any DME and is not a dialysis patient. Patient's primary provider is Russell Ambriz and uses [facility] for prescription medications. Upon discharge the patient plans to return back home. account services manager to follow up with any discharge needs.
--- NOTE | 2024-09-27 13:33 | ESCONSULT_ITS ---
HPI Data of Consult Requesting Physician: Xiomara Golden MD Admitting Provider: Delfino Ortega MD Attending Provider: Xiomara Golden MD Primary Care Provider: Russell Ambriz MD Consult Narrative History of present illness: Judy Fermin is a 48F with PMH anemia and menorrhagia who presented to the ED 09/26 with left-sided blurry vision and face pain that resolved within 1-2 hours, followed by several minutes of left homonymous hemianopia and anomia. All symptoms have resolved at time of interview. Patient does not take any medications at home. No previous episodes. Denies recent illness, shortness of breath, headache, abdominal pain, leg swelling, changes in vision, paresthesias, or weakness. 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 Managing Member ID: [id number]. cc:: cc: Xiomara Golden MD Review of Systems Review of Systems Narrative Review of Systems: 14 point ROS negative other than HPI Exam Vital Signs Temp Pulse Resp BP Pulse Ox O2 Del Method 98.4 F 93 22 H 162/91 H 98 Room Air 09/27/24 13:14 09/27/24 13:14 09/27/24 13:14 09/27/24 13:14 09/27/24 12:04 09/27/24 11:36 Narrative Exam General: No acute distress, well nourished Eye: PERRL, EOMI, normal conjunctiva, no scleral icterus HENT: Normocephalic, atraumatic, clear tympanic membranes, normal hearing, moist oral mucosa, no sinus tenderness Neck: Supple, non-tender, no carotid bruits, no JVD, no lymphadenopathy Lungs: Clear to auscultation bilaterally, non-labored respirations, symmetric chest rise Heart: Normal S1 and S2, no S3 or S4 appreciated. Normal rate and regular rhythm, no murmurs, rubs gallops, or edema. Peripheral pulses intact bilaterally, capillary refill brisk distally Abdomen: Soft, non-tender, non-distended, normal bowel sounds, no masses Musculoskeletal: Normal range of motion and strength, no tenderness or swelling Skin: Skin is warm, dry, no rashes or lesions. Neurologic: Alert, awake and oriented x3. Cranial nerves: II through XII grossly intact. Speech and language: Normal with no dysarthria or dysphasia. Motor system: Tone and bulk: Normal: Strength: 5 out of 5 in all 4 extremities; No pronator drift noted. Deep tendon reflexes: 2+ bilaterally symmetrical. Plantar reflex: Downgoing bilaterally. Sensory system: Intact to all modalities of sensation bilaterally. Coordination: Intact to evqdow-[id number]-[id number] and nijb-ghtj-oimu test bilaterally. No ataxia, no dysmetria, or dysdiadochokinesia noted. No intention tremors noted. Gait: not tested. No signs of meningeal irritation noted. Psychiatric: Cooperative, appropriate mood and affect Results Labs 09/28/24 05:22 09/28/24 05:22 Labs: Short CBC 09/27/24 09/27/24 Range/Units 00:30 05:00 WBC 6.9 4.4 (3.6-11.0) Thou/mm3 Hgb 7.0 L 6.3 L* (12.0-16.0) g/dL Hct 25.5 L 24.0 L (36.0-46.0) % Plt Count 480 H 458 H (140-440) Thou/mm3 BMP 09/27/24 09/27/24 00:30 05:00 Sodium 134 L 142 Potassium 3.3 L 4.0 D Chloride 100 111 H Carbon Dioxide 22.5 21.9 BUN < 5 L < 5 L Creatinine 0.6 0.7 Glucose 109 H 97 Calcium 9.3 8.7 Cardiac Enzymes 09/27/24 Range/Units 00:30 Troponin I 0.033 (0.0-0.045) ng/mL Liver Function 09/27/24 09/27/24 Range/Units 00:30 05:00 Total Bilirubin 0.3 0.2 L (0.3-1.2) mg/dL AST 18 19 (0-34) U/L ALT 10 10 (10-49) U/L Alkaline Phosphatase 138 H 119 H (46-116) U/L Albumin 4.8 4.0 D (3.5-5.0) gm/dL Quality Measures Quality Measures none Medications Home Medications and Allergies Home Medications ?Medication ?Instructions ?Recorded ?Confirmed ?Type lisinopril 20 mg tablet 20 mg PO DAILY 09/24/20 0706/19 History Allergies Allergy/AdvReac Type Severity Reaction Status Date / Time No Known Allergies Allergy Verified 09/26/24 23:12 Visit Medications Acetaminophen (Acetaminophen 325 Mg Tablet) 650 mg PO Q6H PRN PRN Reason: pain 1-3 &/or fever >100.1 Stop: 10/27/24 03:18 Atorvastatin Calcium (Atorvastatin Calcium 20 Mg Tablet) 40 mg PO HS [facility] Stop: 10/27/24 20:59 Ondansetron HCl (Ondansetron Inj 2 Mg/Ml Inj 2 Ml) 4 mg IVP Q4HR PRN PRN Reason: NAUSEA OR VOMITING Stop: 10/27/24 00:24 Discontinued Medications Aspirin (Aspirin 325 Mg Tablet) 325 mg PO X1 ONE Stop: 09/27/24 02:57 Last Admin: 09/27/24 03:04 Dose: 325 mg Aspirin (Aspirin Ec 81 Mg Tabec) 81 mg PO QDAY [facility] Stop: 10/27/24 14:59 Clopidogrel Bisulfate (Clopidogrel Bisulfate 75 Mg Tablet) 300 mg PO X1 ONE Stop: 09/27/24 02:38 Last Admin: 09/27/24 03:01 Dose: 300 mg Clopidogrel Bisulfate (Clopidogrel Bisulfate 75 Mg Tablet) 75 mg PO QDAY [facility] Stop: 10/27/24 14:59 Fluorescein Sodium (Fluorescein Sod 1 Mg Strp) 1 mg BOTH EYES X1 ONE Stop: 09/27/24 00:07 Last Admin: 09/27/24 00:10 Dose: 1 mg Magnesium Sulfate (Magnesium Sulfate Ivpb) 4 gm in 50 mls @ 12.5 mls/hr IV X1 ONE Stop: 09/27/24 10:03 Last Admin: 09/27/24 09:50 Dose: 12.5 mls/hr Ondansetron HCl (Ondansetron Inj 2 Mg/Ml Inj 2 Ml) 4 mg IVP Q6H PRN; Protocol PRN Reason: NAUSEA OR VOMITING Stop: 10/27/24 03:18 Proparacaine HCl (Proparacaine Op Serene 0.5% 15 Ml Btl) 0 drop BOTH EYES X1 ONE Stop: 09/26/24 23:54 Last Admin: 09/27/24 00:12 Dose: 2 drop Assessment & Plan Plan #TIA #Hypertension #Hypertriglyceridemia Left-sided facial pain, blurry vision, homonymous hemianopsia, anomia resolved EKG NSR CT head w/o: Negative for acute hemorrhage, mass effect or midline shift CTA head/neck: No significant neck arterial stenoses. No cerebrovascular large vessel occlusion thrombus. MRI brain: Negative for acute hemorrhage mass effect or midline shift. No acute infarct Punctate foci increased signal in the white matter on FLAIR, indicative of symptomatic chronic disease. No abnormal enhancing cerebellar or cerebral lesions. No carotid stenoses, no cerebral large vessel occlusions UA negative for UTI, EKG NSR, TSH WNL Triglycerides elevated (216) Home meds: none Plan: - Pending Hgb A1C - Start atorvastatin 40 mg daily, ASA 81 mg daily #Microcytic anemia 2/2 Fe deficiency Hx of menorrhagia - LMP 3mons ago - approaching menopause Hgb 6.3 with no signs of active bleeding --> 1U pRBC transfusion given --> hgb 7.9 Plan - Management per primary team - ASA 81 mg daily for TIA with close monitoring of H&H Plan discussed with Dr. Suzi De La Vega, PGY1 Attending Provider Attestation/Addendum I personally have seen and examined the patient at the bedside and I agreed with findings, assessment and plan of care. MRI brain: findings are nonspecific in the right frontal area, not suggestive of demyelination. Reassurance given, continue ASA 81 mg and treat hypertriglyceridemia as per current guidelines. FU with Echo.
[2024-09-27 14:04] LABS: Hematocrit 28.2 % (36.0-46.0)
[2024-09-27 14:08] LABS: Collection Type, Urine Clean Catch
[2024-09-27 14:15] LABS: Bilirubin,Urine Negative (Negative); Blood,Urine Negative (Negative); Clarity,Urine Clear (Clear/Hazy); Color,Urine Lt-Yellow (Lt Yel-Yel); Glucose, Urine Negative (Negative); Ketones,Urine Negative (Negative); Leukocyte Esterase,Urine Negative (Negative); Nitrite,Urine Negative (Negative); PH,Urine 6.0 (5.0-7.0); Protein,Urine Negative (Neg - Trace); RBC,Urine 2 /hpf (0-3); Specific Gravity,Urine 1.024 (1.001-1.035); Squamous Epithelial Cell,Urine 3 /hpf (0-5); Urobilinogen,Urine Negative mg/dL (0.0-1.0); WBC,Urine 1 /hpf (0-5)
[2024-09-27 14:42] LABS: Amphetamine/Methamp Scrn,U Negative (Negative); Barbiturate Screen,Urine Negative (Negative); Benzodiazepines Screen,Urine Negative (Negative); Benzoylecgonine Screen, Ur Negative (Negative); Fentanyl Screen,Urine Negative (Negative); Opiate Screen,Urine Negative (Negative); THC Screen,Urine Negative (Negative)
[2024-09-27 14:51] LABS: Hemoglobin 7.9 g/dL (12.0-16.0)
--- NOTE | 2024-09-27 20:53 | PC.NURSE ---
tried to call report. no answer. will call floor nurse back to give report.
[2024-09-27] MEDS: ATORVASTATIN CALCIUM 20 MG TABLET 40 MG PO (21:33)
[2024-09-28] VITALS: BP 156/88; PULSE 73; PULSE 78; RESP 17; TEMP 36.5; O2SAT 97
[2024-09-28 04:00] VITALS: BP 128/74; PULSE 67; RESP 16; TEMP 36.2; O2SAT 96
[2024-09-28 06:07] LABS: Basophils # (Auto) 0.1 Thou/mm3 (0.0-0.2); Basophils % (Auto) 1 % (0-2.5); Eosinophils # (Auto) 0.1 Thou/mm3 (0.0-0.5); Eosinophils % (Auto) 1 % (0-10); Hematocrit 28.5 % (36.0-46.0); Immature Granulocytes Auto 0.01 Thou/mm3 (0.00-0.00); Lymphocytes # (Auto) 2.1 Thou/mm3 (1.0-4.8); Lymphocytes % (Auto) 33 % (10-50); Mean Corpuscular HGB Conc 28.1 g/dl (31.0-37.0); Mean Corpuscular Hemoglobin 18.3 pg (25.0-35.0); Mean Corpuscular Volume 65 fL (80-100); Monocytes # (Auto) 0.5 Thou/mm3 (0.0-0.8); Monocytes % (Auto) 8 % (0-12); Neutrophils # (Auto) 3.6 Thou/mm3 (1.8-7.7); Neutrophils % (Auto) 57 % (37-80); Nucleated Red Blood Cell # 0.03 Thou/mm3 (0.00-0.00); Nucleated Red Blood Cell % 1 /100 WBC (0); Platelet Count 423 Thou/mm3 (140-440); RDW Standard Deviation 57.5 fL (36.4-46.3); Red Blood Count 4.38 Miln/mm3 (4.00-5.20); White Blood Count 6.4 Thou/mm3 (3.6-11.0)
[2024-09-28 06:14] LABS: Hemoglobin 8.0 g/dL (12.0-16.0)
[2024-09-28 06:17] LABS: INR 1.0 (0.9-1.3); Prothrombin Time 11.1 Seconds (9.0-12.2)
[2024-09-28 06:26] LABS: Albumin, Serum 3.9 gm/dL (3.5-5.0); Albumin/Globulin Ratio 1.3 (1.2-2.2); Alkaline Phosphatase 117 U/L (46-116); Anion Gap 9 (7-16); Aspartate Amino Transferase 16 U/L (0-34); BUN/Creatinine Ratio 7 Ratio (12-20); Bilirubin,Total 0.9 mg/dL (0.3-1.2); Blood Urea Nitrogen 5 mg/dL (9-23); Calcium 8.6 mg/dL (8.3-10.6); Calcium (Corrected) 8.7 mg/dL (8.5-10.1); Carbon Dioxide 28.2 mMol/L (20.0-31.0); Chloride 104 mMol/L (98-107); Creatinine (Component) 0.7 mg/dL (0.6-1.3); Estimated Creatinine Clearance 77.6 mL/min (>60); Globulin 2.9 gm/dL (2.3-3.5); Glucose 94 mg/dL (74-106); Magnesium 2.4 mg/dL (1.6-2.6); Osmolality,Calculated 278 (275-295); Phosphorous 3.8 mg/dL (2.4-5.1); Potassium 3.5 mMol/L (3.4-5.1); Sodium 141 mMol/L (136-145); Total Protein 6.8 gm/dL (5.7-8.2); eGFR > 60 See Note
[2024-09-28 06:33] LABS: Alanine Aminotransferase 9 U/L (10-49)
[2024-09-28 08:00] VITALS: BP 119/73; PULSE 78; PULSE 83; RESP 15; TEMP 36.3; O2SAT 99
--- NOTE | 2024-09-28 09:00 | PC.NURSE ---
DR. 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
[2024-09-28 09:13] VITALS: BP 133/76; PULSE 76
[2024-09-28] MEDS: THIAMINE 100 MG TABLET PO (09:13)
[2024-09-28] MEDS: FOLIC ACID 1 MG TABLET PO (09:13)
--- NOTE | 2024-09-28 09:25 | PCS.ST ---
Pt interviewed with breakfast tray. No dysphagia. No formal swallow evaluation warranted at this time. Speech clear.
--- NOTE | 2024-09-28 09:28 | ECHO_ITS ---
Transthoracic Echo Report Ht (in): 64 Wt (lb): 153 Exam Location: Echo Lab Status: Inpatient Digital Marketing Manager: Alexia Garduno Indications: Procedure Performed: BP: 133 / 76 HR: 76 Technical Quality: Adequate MEASUREMENTS (Male / Female) Normal Values 2D ECHO LVOT Diameter 1.6 cm Ascending Aorta Diameter 2.2 cm M-MODE LV Diastolic Diameter MM 4.5 cm 4.2 - 5.9 / 3.9 - 5.3 cm LV Systolic Diameter MM 3.8 cm LV Ejection Fraction MM Teich 33.9 % LV Cardiac Index MM Teich 1368.3 cm?/min?m? IVS Diastolic Thickness MM 0.8 cm 0.6 - 1.0 / 0.6 - 0.9 cm LVPW Diastolic Thickness MM 1.2 cm 0.6 - 1.0 / 0.6 - 0.9 cm LV Relative Wall Thickness MM 0.4 0.24 - 0.42 / 0.22 - 0.42 LV Mass Index MM 90.6 g/m? 49 - 115 / 43 - 95 g/m? AV Cusp Separation MM 1.6 cm DOPPLER AV Peak Velocity 185.0 cm/s AV Peak Gradient 13.7 mmHg LVOT Peak Velocity 78.1 cm/s LVOT Peak Gradient 2.4 mmHg AV Area Cont Eq pk 0.8 cm? MV Area PHT 2.9 cm? Mitral E Point Velocity 72.3 cm/s Mitral A Point Velocity 72.3 cm/s Mitral E to A Ratio 1.0 LV E' Lateral Velocity 10.0 cm/s Mitral E to LV E' Lateral Ratio 7.2 LV E' Septal Velocity 5.3 cm/s Mitral E to LV E' Septal Ratio 13.6 FINDINGS Left Ventricle Normal left ventricular size, wall thickness, systolic function with no obvious regional wall motion abnormalities. Normal left ventricular diastolic filling pattern for age. The ejection fraction is visually estimated at 65 %. Right Ventricle The right ventricle not well visualized. Left Atrium The left atrium is normal by two-dimensional, color flow and Doppler imaging with no structural abnormalities, no thrombus formation present. Right Atrium Right atrium is not well visualized. Atrial Septum Bubble study negative for PFO/ASD. Aorta The aorta is normal by two-dimensional, color flow and Doppler interrogation. Mitral Valve Mild mitral annular calcification. There is no significant mitral valve regurgitation, stenosis or prolapse. Aortic Valve The aortic valve is trileaflet and mild sclerosis without stenosis. There is no significant aortic valve regurgitation. Tricuspid Valve The tricuspid valve is normal by two-dimensional, color flow and Doppler interrogation. There is no significant tricuspid valve regurgitation. Pulmonic Valve The pulmonic valve is not well visualized. There is no significant pulmonic valve regurgitation. Vessels The pulmonary artery appears normal. The inferior vena cava pulmonary and hepatic veins appear normal. Pericardium The pericardium is normal by two-dimensional imaging. There is no significant pericardial effusion. CONCLUSIONS Indications: Stroke Normal-sized cardiac chambers. Normal size left ventricle with excellent left ventricle systolic function ejection fraction of 65%. Normal right heart structures. No significant valvular heart disease. Bubble study negative for intracardiac shunts negative for PFO. No evidence of cardiac thrombi. Anita Silva (Electronically Signed) Final Date: 28 September 2024 15:21
[2024-09-28] MEDS: ASPIRIN EC 81 MG TABEC PO (09:36)
[2024-09-28 12:00] VITALS: BP 146/76; PULSE 74; PULSE 76; RESP 19; TEMP 36.4; O2SAT 97
--- NOTE | 2024-09-28 14:26 | PC.PT ---
PT eval only. Patient is xI with bed mobility, transfers, and ambulation. Patient is safe to ambulate to the bathroom and in the halls with no AD and 1 staff assist for supervision. RN made aware.
--- NOTE | 2024-09-28 15:25 | ESDS_ITS ---
Planned Discharge Date 09/28/24 DS: Providers Provider Date of admission: 09/27/24 03:45 Primary care physician: Russell Ambriz MD Admitting Provider: Delfino Ortega MD Attending Provider on Admission: Xiomara Golden MD Consults: 09/27/24 00:25 Consult to Neurology / Tele-Neurology Routine Comment: Consulting Provider: [facility] 09/27/24 03:41 Consult to Neurology / Tele-Neurology Stat Comment: Consulting Provider: Josse Archer 09/27/24 03:42 Referral Physical Therapy Stat Comment: Physician Instructions: Referral Speech Therapy Stat Comment: Attending Provider on DC: Xiomara Golden MD Discharging Provider: Xiomara Golden MD DS: Diagnosis Problem List Completed Was Problem List Reviewed/Reconciled?: Yes Hospital Course Hospital Course Hospital course: Judy Fermin is a 48F PMHx significant for HTN, iron deficiency anemia and menorrhagia who was admitted to [facility] on September 26, 2024 for CVA rule out and acute blood loss anemia. Patient arrived to the ED afebrile, with a blood pressure 159/79. Patient was worked up was found to have a hemoglobin 7.0, sodium 134 potassium 3.3, alk phos 138. Teleneurology was consulted and teleneuro reports on exam she had complete left homonymous hemianopsia, anomia, and left facial droop, and NIHSS score of [address] brain negative for hemorrhage and CTA head and neck negative for LVO. EKG in sinus rhythm w rate of 92. In ED, given loading doses of Plavix 300 mg and aspirin 325 mg. Medicine was consulted patient admitted to the floors. While on the floors, she was found to have a hemoglobin of 6.2 which required blood transfusion of 1 PRBC, repeat H&H showed a hemoglobin of 7.9. While on the floors, patient was cleared by speech therapy and physical therapy. MRI showed no acute hemorrhage, LVO or ischemic stroke, however showed some punctate foci. Patient was seen by neurology who had recommended to continue with aspirin and to monitor hemoglobin considering hemoglobin was below 7 at one point. Patient was also found to have mild triglyceridemia in which she was instructed to continue a low-fat diet, exercise and to recheck within 3 months with PCP. A1c was reflexed back to [facility] and was recommended for patient to follow-up with her primary care doctor in regards to this result. Her fasting blood sugar was 90s inpatient, low concern for type 2 diabetes despite A1c reflex to [facility]. It was informed with the patient to consider having hysterectomy due to her menorrhagia. Patient also had echocardiogram which had negative bubble study and ejection fraction 65% and normal LV. With resolution of symptoms, pt likely experienced a TIA. Patient continued to improved and then was discharged with the following instructions. Discharge Instructions: Follow up with PCP upon DC Take medicines as prescribed I am prescribing you oral iron, take every other day as prescribed. You may miles e this with vitamin C or orange juice I am prescribing your Aspirin, this medicine is a blood thinner. This is because you may have experienced a baby stroke (TIA) while in the hospital. Take this medicine and repeat a complete blood count level with your PCP within one week as your hemoglobin was low in the hospital requiring a blood transfusion. If you begin to begin to feel weak, cough/vomit blood or start having bright red or dark stools, stop taking aspirin and come to the emergency department Have your PCP refer you to a OBGYN for evaluation of your menorrhagia (heavy bleeding) and consider hysterectomy if needed Have your PCP repeat a Hemoglobin A1c or follow up with the one performed in the hospital as this was sent over to [facility] while in the hospital Avoid any NSAIDs including ibuprofen, Aleve, Motrin, Advil, naproxen Continue with a low-fat diet and exercise and to recheck your lipid panel especially your triglycerides with your primary care doctor as they were slightly elevated discovered in the hospital I am prescribing you Losartan for your blood pressure, take this medicine as prescribed. It was noted you do not take lisinopril anymore because of side effects. Discuss with your PCP in regards to this medicine. Follow up with Neurologist, Dr. Archer, upon 1-2 weeks of discharge. Return to ER if symptoms worsen or return Instrucciones para el lina: Consulte con arellano m?dico de cabecera tras la baja. Kila los medicamentos seg?n lo prescrito. Le receto anabell oral. T?joseph cada dos d?as seg?n lo prescrito. Puede tomarlo con vitamina C o jugo de naranja. Le receto aspirina, un medicamento anticoagulante. [place] se debe a que podr?a dex sufrido un accidente cerebrovascular infantil (AIT) bruna arellano estancia en el hospital. T?joseph y repita un hemograma completo con arellano m?dico de cabecera en el plazo de haydee semana, ya que arellano hemoglobina estaba baja en el hospital, lo que requiri? haydee transfusi?n de jazlyn. Si empieza a sentirse d?argentina, tose o vomita jazlyn, o tiene heces de color leon brillante u oscuras, deje de josh aspirina y acuda a urgencias. Solicite a arellano m?dico de cabecera que la derive a un ginec?logo para que eval?e arellano menorragia (sangrado abundante) y considere haydee histerectom?a si es necesario. Solicite a arellano m?dico de cabecera que repita la hemoglobina A1c o que le d? seguimiento con la que se le realiz? en el hospital, ya que se la env iaron a consulta bruna arellano estancia en el hospital. Evite cualquier MARBIN, incluyendo ibuprofeno, Aleve, Motrin, Advil y naproxeno. Contin?e con haydee dieta baja en grasas y john ejercicio, y vuelva a controlar arellano perfil lip?dico, especialmente shyanne triglic?ridos, con arellano m?dico de cabecera, ya que estaban ligeramente elevados, eleazar se detect? en el hospital. Le receto losart?n para la presi?n arterial. Kila george medicamento seg?n lo prescrito. Se indic? que ya no irena lisinopril debido a los efectos secundarios. Consulte con arellano m?dico de cabecera sobre george medicamento. Seguimiento con el neur?logo, Dr. Archer, dentro de haydee o dos semanas. Regrese a urgencias si los s?ntomas empeoran o regresan. Problem List: #TIA #CVA, ruled out #Acute blood loss anemia #Iron Deficiency Anemia #Hx of menorrhagia #HTN #Mild hypertriglyceridemia #Hypomagnesimia - RESOLVED Discharge summary was reviewed with my attending Dr. Chico Vuong, PGY-2 Time Spent with Patient Time attestation: Total time spent providing and/or coordinating discharge services: Time spent: Less than 30 minutes Exam Vital Signs Temp Pulse Resp BP Pulse Ox O2 Del Method 97.5 F 74 19 146/76 H 97 Room Air 09/28/24 12:09/28/24 12:09/28/24 12:09/28/24 12:09/28/24 12:09/28/24 12:00 Narrative Exam General: AOx3, no acute distress, kyrgyz speaking, obese HEENT: NC/AT, mucous membranes moist, bilateral sclera anicteric Cardiovascular: regular rate and rhythm, S1/S2 present, no murmurs/rubs/gallops Pulmonary: clear to auscultation bilaterally, no rales/rhonchi/wheezes Abdominal: soft, non-tender, non-distended, no rebound/guarding, bowel sounds present Extremities: no peripheral edema Skin: warm and dry, intact, no rashes Neuro: following commands, no focal deficits, bilat applied psychology chair strength 5/5 on upper, bilat lower ext strength 5/5, peripheral vision intact Discharge Plan Plan Patient Disposition: HOME (Self Care) Patient condition on transfer: Stable Care Plan Goals: Discharge Instructions: Follow up with PCP upon DC Take medicines as prescribed I am prescribing you oral iron, take every other day as prescribed. You may take this with vitamin C or orange juice I am prescribing your Aspirin, this medicine is a blood thinner. This is because you may have experienced a baby stroke (TIA) while in the hospital. Take this medicine and repeat a complete blood count level with your PCP within one week as your hemoglobin was low in the hospital requiring a blood transfusion. If you begin to begin to feel weak, cough/vomit blood or start having bright red or dark stools, stop taking aspirin and come to the emergency department Have your PCP refer you to a OBGYN for evaluation of your menorrhagia (heavy bleeding) and consider hysterectomy if needed Have your PCP repeat a Hemoglobin A1c or follow up with the one performed in the hospital as this was [facility] while in the hospital Avoid any NSAIDs including ibuprofen, Aleve, Motrin, Advil, naproxen Continue with a low-fat diet and exercise and to recheck your lipid panel especially your triglycerides with your primary care doctor as they were slightly elevated discovered in the hospital I am prescribing you Losartan for your blood pressure, take this medicine as prescribed. It was noted you do not take lisinopril anymore because of side effects. Discuss with your PCP in regards to this medicine. Follow up with Neurologist, Dr. Archer, upon 1-2 weeks of discharge. Return to ER if symptoms worsen or return Instrucciones para el lina: Consulte con arellano m?dico de cabecera tras la baja. Kila los medicamentos seg?n lo prescrito. Le receto anabell oral. T?joseph cada dos d?as seg?n lo prescrito. Puede tomarlo con vitamina C o jugo de naranja. Le receto aspirina, un medicamento anticoagulante. [place] se debe a que podr?a dex sufrido un accidente cerebrovascular infantil (AIT) bruna arellano estancia en el hospital. T?joseph y repita un hemograma completo con arellano m?dico de cabecera en el plazo de haydee semana, ya que arellano hemoglobina estaba baja en el hospital, lo que requiri? haydee transfusi?n de jazlyn. Si empieza a sentirse d?argentina, tose o vomita jazlyn, o tiene heces de color leon brillante u oscuras, deje de josh aspirina y acuda a urgencias. Solicite a arellano m?dico de cabecera que la derive a un ginec?logo para que eval?e arellano menorragia (sangrado abundante) y considere haydee histerectom?a si es necesario. Solicite a arellano m?dico de cabecera que repita la hemoglobina A1c o que le d? seguimiento con la que se le realiz? en el hospital, ya que se la enviaron a consulta bruna arellano estancia en el hospital. Evite cualquier MARBIN, incluyendo ibuprofeno, Aleve, Motrin, Advil y naproxeno. Contin?e con haydee dieta baja en grasas y john ejercicio, y vuelva a controlar arellano perfil lip?dico, especialmente shyanne triglic?ridos, con arellano m?dico de cabecera, ya que estaban ligeramente elevados, eleazar se detect? en el hospital. Le receto losart?n para la presi?n arterial. Kila george medicamento seg?n lo prescrito. Se indic? que ya no irena lisinopril debido a los efectos secundarios. Consulte con arellano m?dico de cabecera sobre george medicamento. Seguimiento con el neur?logo, Dr. Archer, dentro de haydee o dos semanas. Regrese a urgencias si los s?ntomas empeoran o regresan. Prescriptions/Referrals Prescriptions/Med Rec: New ferrous sulfate [Iron (ferrous sulfate)] 325 mg (65 mg iron) tablet 325 mg PO Q OTHER DAY 30 Days Qty: 15 0RF Rx Instructions: Take 1 tablet by mouth every other day losartan 25 mg tablet 25 mg PO QDAY 30 Days Qty: 30 0RF Rx Instructions: Take one tablet by mouth every day Discontinued lisinopril 20 mg tablet 20 mg PO DAILY Patient Comments: TAKE 1 TABLET BY MOUTH EVERY DAY Referrals: Russell Ambriz MD [Primary Care Provider] - Patient/Caregiver Discharge Instructions Discharge Activity: activity as tolerated Education Materials: ED Hypertension, New (Begin Treatment), ED TIA: Transient Ischemic Attack, ED Diet: Diabetes Print Language: Kenyan Stand Alone Forms: Layla Award Info., Patient Portal Info Letter, Work/Release Restrictions Discharge Order Discharge Orders: Discharge (Routine); Ordered 09/28/24 Ordered By: Tito Vuong Quality Discharge Quality Measures VTE prophylaxis (SCDs) Attestestation MD Attestation I attest that I was physically present for the evaluation, physical examination, lab and imaging review of the patient with the residents. I discussed the case with the residents and agree with the findings and plans of care as documented above. Xiomara Golden MD
[2024-09-28 16:00] VITALS: BP 116/65; PULSE 76; PULSE 85; RESP 17; TEMP 36.6; O2SAT 96
--- NOTE | 2024-09-28 18:47 | PC.NURSE ---
DR Siddiqui WILL SEND PRESCRIPTION FOR ASPIRIN.
[2024-09-28 20:45] LABS: Folate 20.77 ng/mL (>5.38)
--- NOTE | 2024-09-28 23:46 | VVPN_ITS ---
Telemedicine visit statement This visit was conducted with the use of phone was obtained on 09/28/24. Documentation for date of: 09/28/24 Subjective Subjective Interval history: Patient is in medsurg, no complaints/recurrence of similar symptoms after admission. Virtual exam Vital Signs Temp Pulse Resp BP Pulse Ox O2 Del Method 97.8 F 85 17 116/65 96 Room Air 09/28/24 16:00 09/28/24 16:00 09/28/24 16:00 09/28/24 16:00 09/28/24 16:00 09/28/24 16:00 Objective Labs 09/28/24 05:22 09/28/24 05:22 Labs: Laboratory Results - last 24 hr 09/28/24 05:22 WBC 6.4 D RBC 4.38 Hgb 8.0 L Hct 28.5 L MCV 65 L MCH 18.3 L MCHC 28.1 L RDW Std Deviation 57.5 H Plt Count 423 D Neut % (Auto) 57 Lymph % (Auto) 33 [place] % (Auto) 8 Eos % (Auto) 1 Baso % (Auto) 1 Neut # (Auto) 3.6 Lymph # (Auto) 2.1 [place] # (Auto) 0.5 Eos # (Auto) 0.1 Baso # (Auto) 0.1 Immature Gran # (Auto) 0.01 H Absolute Nucleated RBC 0.03 H Immature Gran % 0 Nucleated RBC % 1 H PT 11.1 INR 1.0 Sodium 141 Potassium 3.5 D Chloride 104 Carbon Dioxide 28.2 Anion Gap 9 BUN 5 L Creatinine 0.7 Estim Creat Clear Calc 77.6 eGFR > 60 BUN/Creatinine Ratio 7 L Glucose 94 Calculated Osmolality 278 Calcium 8.6 Corrected Calcium 8.7 Phosphorus 3.8 Magnesium 2.4 Total Bilirubin 0.9 D AST 16 ALT 9 L Alkaline Phosphatase 117 H Total Protein 6.8 Albumin 3.9 Globulin 2.9 Albumin/Globulin Ratio 1.3 Folate 20.77 Assessment & Plan Assessment #TIA #Hypertension #Hypertriglyceridemia Left-sided facial pain, blurry vision, homonymous hemianopsia, anomia resolved EKG NSR CT head w/o: Negative for acute hemorrhage, mass effect or midline shift CTA head/neck: No significant neck arterial stenoses. No cerebrovascular large vessel occlusion thrombus. MRI brain: Negative for acute hemorrhage mass effect or midline shift. No acute infarct Punctate foci increased signal in the white matter on FLAIR, indicative of symptomatic chronic disease. No abnormal enhancing cerebellar or cerebral lesions. No carotid stenoses, no cerebral large vessel occlusions Echo: normal study UA negative for UTI, EKG NSR, TSH WNL Triglycerides elevated (216) Home meds: none Plan: - continue with statin and ASA 81 mg daily with close monitoring of hgb -stable for d/c home and will see her in 2 weeks. #Microcytic anemia 2/2 Fe deficiency Hx of menorrhagia - LMP 3months ago - approaching menopause Hgb 6.3 with no signs of active bleeding --> 1U pRBC transfusion given --> hgb 7.9 Plan - Management per primary team - ASA 81 mg daily for TIA with close monitoring of H&H Going to get repeat CBC in a week. continue with Ferrous so4
[2024-09-30 21:47] LABS: Vitamin B12 280 pg/mL (211-911)
== END 2024-09-28 18:53 | disposition home or self-care (01) ==
LOC: SERX 09-27 02:57 → SERHOLD 09-27 05:21 → S3SX 09-28 05:59
PROVIDERS: Family Medicine; Student in an Organized Health Care Education/Training Program; Admitting Provider Internal Medicine; Emergency Provider Emergency Medicine; PCP Family Medicine; Visit Provider Student in an Organized Health Care Education/Training Program
DX: G45.9 Transient cerebral ischemic attack, unspecified (principal); D50.9 Iron deficiency anemia, unspecified; Z71.82 Exercise counseling; R29.810 Facial weakness; I63.89 Other cerebral infarction; H54.62 Unqualified visual loss, left eye, normal vision right eye; I10 Essential (primary) hypertension; H53.462 Homonymous bilateral field defects, left side; E78.1 Pure hyperglyceridemia; Z01.810 Encounter for preprocedural cardiovascular examination; E83.42 Hypomagnesemia
CPT/HCPCS: 36415; 36430; 70450; 70496; 70498; 70553; 80053; 80061; 80307; 81001; 82270; 82607; 82728; 82746; 83036; 83540; 83550; 83735; 84100; 84443; 84484; 84703; 85014; 85018; 85025; 85610; 85730; 86850; 86900; 86901; 86923; 87086; 93005; 93225; 93306; 96365; 96366; 97161; 99291; A4649; G0378; J3475; P9016; Q9967; A9270